=== PATIENT | male | born 1970 | race Caucasian/White ===

== ENCOUNTER 2020-01-01 20:40 | Emergency (ER) | payer BC ==
--- NOTE | 2020-01-01 21:18 | EDM.PDOC ---
ED HPI GENERAL MEDICAL PROBLEM - General Chief Complaint: General Stated Complaint: BOTH LEGS ARE SWOLLEN Time Seen by Provider: 01/01/20 20:55 Source of Information: Reports: Patient, Provider (Felipa Krishnamurthy) History Limitations: Reports: No Limitations - History of Present Illness INITIAL COMMENTS - FREE TEXT/NARRATIVE: Mr. Vivas is a very pleasant 49-year-old man with a past medical history significant for obesity and obstructive sleep apnea, who now presents to the ED at the direction of his PCP for bilateral lower extremity Dopplers to evaluate for a DVT. The patient states that he developed bilateral lower extremity edema all the way up to his knees about 1 month ago, and that it has progressively been getting worse, particularly over the past couple of weeks. He was started on Lasix, dose unknown, 1 tablet/day, this past , 2019, which may have helped a bit, however, on follow-up today, a D-dimer was checked and found to be slightly elevated at 0.52. The patient was therefore directed here for the Dopplers. The patient reports a 50 to 60 pound weight gain since January 2019. He is being worked up for positional vertigo and bilateral hearing loss that may be due to BPPV, Mnire disease, or something else. Otherwise, he denies recent fever, chills, sore throat, ear pain, nasal or sinus congestion, cough, dyspnea, chest pain, palpitations, nausea, vomiting, constipation, diarrhea, abdominal pain, urinary symptoms, recent bloody bowel movements or black bowel movements, recent joint aches, headaches, or rashes. Here in the ED, the patient is found to be hemodynamically stable, afebrile, saturating 95% on room air. The patient's PCP is Felipa Krishnamurthy NP. He does not recall the name of his ENT, in [place]. His Neurologist is Dr. Radha Loza. His Audit Practice Intern is Dr. Rocio Apple. - Related Data Allergies Allergy/AdvReac Type Severity Reaction Status Date / Time No Known Allergies Allergy Verified 01/01/20 20:54 Past Medical History Respiratory History: Reports: Sleep Apnea (nightly CPAP 13) Endocrine/Metabolic History: Reports: Obesity/BMI 30+ - Infectious Disease History Infectious Disease History: Reports: Chicken Pox, Measles, Mumps - Past Surgical History HEENT Surgical History: Reports: Oral Surgery (wisdom teeth + anterior teeth extractions) Male Surgical History: Reports: Vasectomy Social & Family History - Family History Family Medical History: Noncontributory - Tobacco Use Smoking Status *Q: Never Smoker Second Hand Smoke Exposure: No - Alcohol Use Alcohol Use History: Yes Alcohol Use Frequency: Socially - Recreational Drug Use Recreational Drug Use: No - Living Situation & Occupation Living situation: Reports: , with Spouse Occupation: Employed ([employer]) ED ROS GENERAL - Review of Systems Review Of Systems: Comprehensive ROS is negative, except as noted in HPI. ED EXAM, GENERAL - Physical Exam Exam: See Below Exam Limited By: No Limitations General Appearance: Alert, WD/WN, No Apparent Distress Eye Exam: Bilateral Eye: EOMI, Normal Inspection Ears: Normal External Exam, Hearing Grossly Normal Nose: Normal Inspection Throat/Mouth: Normal Inspection, Normal Lips, Normal Voice, No Airway Compromise Head: Atraumatic, Normocephalic Neck: Normal Inspection, Full Range of Motion Respiratory/Chest: No Respiratory Distress, Lungs Clear, Normal Breath Sounds, No Accessory Muscle Use Cardiovascular: Normal Peripheral Pulses, Regular Rate, Rhythm, No Gallop, No JVD, No Murmur, No Rub Peripheral Pulses: 4+: Radial (L), Radial (R) GI/Abdominal: Normal Bowel Sounds, Soft, Non-Tender, No Organomegaly, No Distention, No Abnormal Bruit, No Mass (Male) Exam: Deferred Rectal (Males) Exam: Deferred Back Exam: Normal Inspection, Full Range of Motion, NT Extremities: Normal Range of Motion, Non-Tender, Normal Capillary Refill, Other (Trace to 1+ pretibial edema bilaterally) Neurological: Alert, Oriented, Normal Cognition, No Motor/Sensory Deficits Psychiatric: Normal Affect Skin Exam: Warm, Dry, Intact, Normal Color, No Rash Course - Vital Signs Last Recorded V/S: Last Vital Signs Temp 36.4 C 01/01/20 20:51 Pulse 93 01/01/20 20:51 Resp 16 01/01/20 20:51 BP 141/77 H 01/01/20 20:51 Pulse Ox 95 01/01/20 20:51 - Orders/Labs/Meds Orders: Active Orders 24 hr Category Date Time Status Venous Doppler Lwr Ext Bi [US] Stat Exams 01/01/20 21:09 Taken - Re-Assessments/Exams Free Text/Narrative Re-Assessment/Exam: 01/01/20 21:11 I have ordered bilateral lower extremity Doppler ultrasounds. 01/01/20 22:52 Doppler ultrasound of the bilateral lower extremities is read by Trice as "No evidence of DVT." 01/01/20 22:56 Doppler results discussed with the patient. I explained that the patient's lower extremity edema is likely due to venous insufficiency. I recommended that he invest in some compression stockings, either knee-high or thigh-high, and that he do his best to consume a low-salt diet. Departure - Departure Time of Disposition: 22:56 Disposition: Home, Self-Care 01 Condition: Good Clinical Impression: Edema of both lower legs due to peripheral venous insufficiency - Discharge Information *PRESCRIPTION DRUG MONITORING PROGRAM REVIEWED*: Not Applicable *COPY OF PRESCRIPTION DRUG MONITORING REPORT IN PATIENT KARMA: Not Applicable Referrals: Felipa Krishnamurthy MD [Primary Care Provider] - Radha Loza MD [Ordering Only Provider] - Rocio Apple MD [Ordering Only Provider] - Forms: ED Department Discharge Additional Instructions: You were seen in the emergency room for 1 month of worsening lower extremity edema. Work-up in the ER included Doppler ultrasounds of both of your legs. Both returned normal, with no sign of a blood clot (DVT). Based on your history, physical exam, and ER Doppler ultrasound results, the cause of your lower extremity edema is most likely due to venous insufficiency. We recommend that you purchase some [id number] compression stockings, either knee-high or thigh-high. Apply them in the morning, and take them off at bedtime. Elevate your lower extremities as much as possible when you are not walking around. Do your best to eat as low-salt diet as possible. Weight loss will help with the edema, as well. If any other problems, please do not hesitate to return to the ER. Sepsis Event Note - Evaluation Sepsis Screening Result: No Definite Risk - Focused Exam Vital Signs: Vital Signs Temp Pulse Resp BP Pulse Ox 01/01/20 20:51 36.4 C 93 16 141/77 H 95 Date Exam was Performed: 01/01/20 Time Exam was Performed: 22:52 - My Orders Last 24 Hours: My Active Orders 01/01/20 21:09 Venous Doppler Lwr Ext Bi [US] Stat - Assessment/Plan Last 24 Hours: My Active Orders 01/01/20 21:09 Venous Doppler Lwr Ext Bi [US] Stat
--- NOTE | 2020-01-02 05:33 | US ---
Bilateral lower extremity deep venous ultrasound: Duplex and color Doppler evaluation was obtained of the right and left common femoral, proximal greater saphenous, superficial femoral, popliteal, posterior tibial and peroneal veins. Comparison: No prior venous imaging is available. Findings: Normal phasic flow, augmentation and compression is seen. Impression: 1. No evidence of deep venous thrombosis within the right or left lower extremity. Diagnostic code #1 This report was dictated in MDT I agree with preliminary report from Trice, finalized on 01/01/20, 11:41 PM Central Daylight Time
== END 2020-01-01 23:08 | disposition home or self-care (01) ==
LOC: JD.ED 20:40
DX: I87.2 Venous insufficiency (chronic) (peripheral) (principal); R60.0 Localized edema; E66.9 Obesity, unspecified; Z68.41 Body mass index [BMI] 40.0-44.9, adult
CPT/HCPCS: 93970; 93970-26; 99284-25

== ENCOUNTER 2020-02-07 10:33 | Day surgery (SDC) | payer BC, OTHER ==
[~2020-02-07 10:33] MED LIST: Lactated Ringers 1,000 ML IV SCH; Lidocaine 1%/Sod Bicarbonate in NS 8.4% 1 ML Syringe IDERM PRN; Sodium Chloride 0.9% 10 ML Syringe FLUSH PRN
[2020-02-07] MEDS ORDERED: Lidocaine 1% 4 ML ONE (10:58)
[2020-02-07] MEDS ORDERED: Propofol 200 MG/20 ML SDV ONE (10:59)
[2020-02-07] MEDS ORDERED: fentaNYL 100 MCG/2 ML SDV ONE (10:59)
--- NOTE | 2020-02-07 11:33 | PCM.PREANE ---
Preanesthetic Assessment - Procedure Proposed Procedure: EGD / colonoscopy - Anesthesia/Transfusion/Family Hx Anesthesia History: Prior Anesthesia Without Reaction Transfusion History: No Prior Transfusion(s) - Review of Systems General: No Symptoms Pulmonary: No Symptoms Cardiovascular: No Symptoms Gastrointestinal: No Symptoms Neurological: No Symptoms Other: Reports: None - Physical Assessment Vital Signs: Last Vital Signs Temp 98.0 F 02/07/20 10:40 Pulse 63 02/07/20 10:40 Resp 16 02/07/20 10:40 BP 139/77 02/07/20 10:40 Pulse Ox 96 02/07/20 10:40 ASA Class: 3 Mental Status: Alert & Oriented x3 Airway Class: Mallampati = 4 Dentition: Reports: Normal Dentition, [place](s) Thyro-Mental Finger Breadths: 3 Mouth Opening Finger Breadths: 3 ROM/Head Extension: Full Lungs: Clear to Auscultation, Normal Respiratory Effort Cardiovascular: Regular Rate, Regular Rhythm - Lab Values: Laboratory Last Values SARS Virus RNA (PCR) Negative (NEGATIVE) 02/05/20 09:35 - Allergies Allergies/Adverse Reactions: Allergies Allergy/AdvReac Type Severity Reaction Status Date / Time No Known Allergies Allergy Verified 02/06/20 12:36 - Acknowledgements Anesthesia Type Planned: MAC Pt an Appropriate Candidate for the Planned Anesthesia: Yes Alternatives and Risks of Anesthesia Discussed w Pt/Guardian: Yes Pt/Guardian Understands and Agrees with Anesthesia Plan: Yes PreAnesthesia Questionnaire HEENT History: Reports: Hard of Hearing, Other (See Below) Other HEENT History: TINNITIS, BILATERAL HEARING AIDS, ORAL SURGERY Cardiovascular History: Reports: High Cholesterol Respiratory History: Reports: Sleep Apnea Gastrointestinal History: Reports: None Genitourinary History: Reports: None ORIENTATION AND MOBILITY SPECIALIST History: Reports: None Musculoskeletal History: Reports: None Neurological History: Reports: Migraines, Vertigo Psychiatric History: Reports: None Endocrine/Metabolic History: Reports: Obesity/BMI 30+ Hematologic History: Reports: Iron Deficiency Immunologic History: Reports: None Oncologic (Cancer) History: Reports: None Dermatologic History: Reports: None - Infectious Disease History Infectious Disease History: Reports: None - Past Surgical History Head Surgeries/Procedures: Reports: None HEENT Surgical History: Reports: Oral Surgery Cardiovascular Surgical History: Reports: None Respiratory Surgical History: Reports: None GI Surgical History: Reports: None Male Surgical History: Reports: Vasectomy Neurological Surgical History: Reports: None Musculoskeletal Surgical History: Reports: None Oncologic Surgical History: Reports: None Dermatological Surgical History: Reports: None - SUBSTANCE USE Smoking Status *Q: Never Smoker Recreational Drug Use History: No - HOME MEDS Home Medications: Home Meds . [No Known Home Meds] 02/06/20 [History] - CURRENT (IN HOUSE) MEDS Current Meds: Current Medications Lactated Ringer's (Ringers, Lactated) 1,000 mls @ 125 mls/hr IV ASDIRECTED FRANK Stop: 02/07/20 23:00 Last Admin: 02/07/20 11:00 Dose: 125 mls/hr Documented by: Lidocaine/Sodium Bicarbonate (Buffered Lidocaine 1% In Ns 8.4%) 0.25 ml IDERM ONETIME PRN PRN Reason: Prior to IV Start Stop: 02/07/20 18:00 Last Admin: 02/07/20 10:59 Dose: 0.25 ml Documented by: Sodium Chloride (Saline Flush) 10 ml FLUSH ASDIRECTED PRN PRN Reason: Keep Vein Open Stop: 02/07/20 18:00 Discontinued Medications Fentanyl (Sublimaze) Confirm Administered Dose 100 mcg .ROUTE .STK-MED ONE Stop: 02/07/20 11:00 Lidocaine HCl (Xylocaine-Mpf 1%) Confirm Administered Dose 4 mls @ as directed .ROUTE .STK-MED ONE Stop: 02/07/20 10:59 Propofol (Diprivan 20 Ml) Confirm Administered Dose 600 mg .ROUTE .STK-MED ONE Stop: 02/07/20 11:00
--- NOTE | 2020-02-07 12:10 | PCM.OPNOTE ---
- General Post-Op/Procedure Note Date of Surgery/Procedure: 02/07/20 Operative Procedure(s): EGD and colonoscopy Findings: 1. Gastric polyps 2. Gastritis 3. Irregular GE junction 4. Cecal polyp 5. Sigmoid polyp 6. Internal polyp Pre Op Diagnosis: Positive FIT test, change in bowel habits, rectal bleeding, hematochezia, iron deficiency Post-Op Diagnosis: same Anesthesia Technique: MAC Primary Surgeon: Yina Turner Anesthesia Provider: Sidney Ruiz Pathology: 1. Antrum biopsy 2. Antral polyp biopsies x3 3. Mucosal abnormality gastric body 4. GE junction biopsies 5. Cecum polyp 6. Sigmoid polyp Fluid Replacement, Intraop: 1,000 Output, Urine Amount: 0 EBL in mLs: 0 Complications: none apparent Condition: Good
--- NOTE | 2020-02-07 12:17 | PCM48HPAN ---
Post Anesthesia Note - EVALUATION WITHIN 48HRS OF ANESTHETIC Vital Signs in Normal Range: Yes Patient Participated in Evaluation: Yes Respiratory Function Stable: Yes Airway Patent: Yes Cardiovascular Function Stable: Yes Hydration Status Stable: Yes Pain Control Satisfactory: Yes Nausea and Vomiting Control Satisfactory: Yes Mental Status Recovered: Yes Vital Signs: Last Vital Signs Temp 97.5 F 02/07/20 12:05 Pulse 78 02/07/20 12:05 Resp 13 02/07/20 12:05 BP 125/78 02/07/20 12:05 Pulse Ox 96 02/07/20 12:05
--- NOTE | 2020-02-07 13:08 | PCM.PRNOTE ---
- Free Text/Narrative Note: Operative Report Date of Procedure: February 07, 2020 Pre Op Diagnosis: Positive FIT test, change in Bowel habits, hematochezia, rectal bleeding, iron deficiency anemia Post-Op Diagnosis: same Operative Procedures: 1. EGD with biopsy 2. Colonoscopy to the cecum Primary Surgeon: Yina Turner MD Anesthesia Provider: Sidney Ruiz CRNA Anesthesia Technique: MAC IV Fluid Replacement, Intraop: 1000cc crystalloid Output, Urine Amount: 0cc EBL in mLs: 0cc Findings: 1. Gastric polyps 2. Gastritis 3. Irregular GE junction 4. Cecal polyp 5. Sigmoid polyp 6. Internal polyp Specimens: 1. Antrum biopsy 2. Antral polyp biopsies x3 3. Mucosal abnormality gastric body 4. GE junction biopsies 5. Cecum polyp 6. Sigmoid polyp Drain/Tubes: None Indication: The patient is a 49-year-old gentleman who presented to the clinic with findings of a positive FIT test and iron deficiency anemia. The patient reported symptoms of hematochezia and rectal bleeding with also changes in bowel habits. The patient was consented for a diagnostic EGD and colonoscopy. Risks of bleeding, and perforation were discussed, and the patient agreed to the risks and wished to proceed. Description of the procedure: The patient was taken back to the endoscopy suite, and placed in the left lateral decubitus position. A bite block was placed. The patient was sedated with MAC anesthesia. The Olympus video endoscope was inserted into the oropharynx and guided under direct vision into the esophagus, stomach, and duo denum. The duodenal bulb and second portion of the duodenum were unremarkable. The gastric antrum was inspected and cold biopsy forceps were used to take tissue samples for H. pylori. There were findings of gastritis throughout the stomach and also in the antrum. A few polypoid pieces of mucosa were present in the antrum and biopsied with cold biopsy forceps. The scope was withdrawn to the stomach and retroflexed. There was no increased fluid, food or secretions in the upper gastrointestinal tract. There were scattered benign appearing gastric polyps. A 1.5cm patch of irregular, erythematous mucosa was present on the greater curvature, and was biopsied with cold biopsy forceps. No erosions or ulcers were noted. The scope was withdrawn to the esophagus. A this point we noted some irregularity of the GE junction, most consistent with esophagitis which was biopsied in 4 quadrants with a cold biopsy forceps. The endoscope was then withdrawn. Next, anorectal examination was performed. No lesions, masses or hemorrhoids were noted externally or on palpation. The scope was placed into the rectum and advanced to cecum. Upon reaching the cecum, and the patient�s cecum was entered. There was mild tortuosity of the colon, requiring some abdominal external application for reaching the cecum. The ileocecal valve was well visualized and the appendiceal orifice identified. An 8mm pedunculated polyp was seen ans removed with a hot snare. This was removed with a net device. An additional piece of polyp was removed with a jumbo biopsy forceps. At this point, the scope was slowly withdrawn, paying attention to the mucosa. The patient had good bowel prep, 95% of the mucosa was visible. An additional flat 3mm polyp was noted in the sigmoid and was removed with a jumbo cold biopsy forceps. In the rectum, scope was retroflexed and some enlarged internal hemorrhoidal tissue was noted. The scope was placed back in the lumen and excess air was aspirated. The scope was removed. The patient tolerated the procedure very well. Complications: None apparent Condition: The patient was transported to PACU in stable condition. Yina Turner MD General Surgerya
== END 2020-02-07 13:10 | disposition home or self-care (01) ==
LOC: JD.SDS 10:33
PROVIDERS: ATTEND Surgery
DX: D12.0 Benign neoplasm of cecum (principal); K64.8 Other hemorrhoids; K29.70 Gastritis, unspecified, without bleeding; K31.89 Other diseases of stomach and duodenum; K31.7 Polyp of stomach and duodenum; E66.9 Obesity, unspecified; I51.89 Other ill-defined heart diseases; E78.5 Hyperlipidemia, unspecified; G47.33 Obstructive sleep apnea (adult) (pediatric); D50.9 Iron deficiency anemia, unspecified; Q43.8 Other specified congenital malformations of intestine; Z88.0 Allergy status to penicillin; Z68.39 Body mass index [BMI] 39.0-39.9, adult; Z01.812 Encounter for preprocedural laboratory examination; Z20.828 Contact with and (suspected) exposure to other viral communicable diseases
CPT/HCPCS: 43239; 45380; 45385; 87635; J2001; J2704; J3010; J7120; 00813; U0002